=== PATIENT | female | born 1975 | race Caucasian/White ===

== ENCOUNTER 2018-02-14 05:05 | Outpatient (CLI) | payer MEDICARE, MEDICAID ==
[~2018-02-14 05:05] MED LIST: ALBU18HF2 INH; BECL7.3A INH; CHOL2000 PO; CLOT15CR73 TP; FERR325T28 PO; GLIP5TAB13 PO; LOSA1TAB36 PO; METF500T3 PO; METO25TA6 PO; OMEP40CA37 PO
== END 2018-02-14 23:59 | disposition home or self-care (01) ==
LOC: DIABETIC 05:05
PROVIDERS: ATTEND Student in an Organized Health Care Education/Training Program
DX: Z71.3 Dietary counseling and surveillance (principal); E11.9 Type 2 diabetes mellitus without complications; E66.01 Morbid (severe) obesity due to excess calories
CPT/HCPCS: 97802

== ENCOUNTER 2018-04-10 02:23 | Outpatient (CLI) | payer MEDICARE, MEDICAID | END 2018-04-10 23:59 | disposition home or self-care (01) | LOC: DIABETIC 02:23 | PROVIDERS: ATTEND Student in an Organized Health Care Education/Training Program | DX: Z01.818 Encounter for other preprocedural examination (principal); E11.9 Type 2 diabetes mellitus without complications; I10 Essential (primary) hypertension; E66.9 Obesity, unspecified; E66.01 Morbid (severe) obesity due to excess calories; J45.909 Unspecified asthma, uncomplicated; Z79.84 Long term (current) use of oral hypoglycemic drugs; Z79.899 Other long term (current) drug therapy | CPT/HCPCS: 97802 ==

== ENCOUNTER 2018-05-06 01:40 | Outpatient (CLI) | payer MEDICARE, MEDICAID | END 2018-05-06 23:59 | disposition home or self-care (01) | LOC: DIABETIC 01:40 | PROVIDERS: ATTEND Student in an Organized Health Care Education/Training Program | DX: E66.01 Morbid (severe) obesity due to excess calories (principal); E11.9 Type 2 diabetes mellitus without complications; I10 Essential (primary) hypertension; K75.81 Nonalcoholic steatohepatitis (NASH); J45.909 Unspecified asthma, uncomplicated; Z79.84 Long term (current) use of oral hypoglycemic drugs; Z79.899 Other long term (current) drug therapy | CPT/HCPCS: 97802 ==

== ENCOUNTER 2018-06-05 02:18 | Outpatient (CLI) | payer MEDICARE, MEDICAID | END 2018-06-05 23:59 | disposition home or self-care (01) | LOC: DIABETIC 02:18 | PROVIDERS: ATTEND Student in an Organized Health Care Education/Training Program | DX: Z01.818 Encounter for other preprocedural examination (principal); E66.01 Morbid (severe) obesity due to excess calories; E11.9 Type 2 diabetes mellitus without complications; K58.8 Other irritable bowel syndrome; I10 Essential (primary) hypertension; Z79.899 Other long term (current) drug therapy; Z79.84 Long term (current) use of oral hypoglycemic drugs | CPT/HCPCS: 97802 ==

== ENCOUNTER 2018-07-08 03:14 | Outpatient (CLI) | payer MEDICARE, MEDICAID | END 2018-07-08 23:59 | disposition home or self-care (01) | LOC: DIABETIC 03:14 | PROVIDERS: ATTEND Student in an Organized Health Care Education/Training Program | DX: Z01.818 Encounter for other preprocedural examination (principal); I10 Essential (primary) hypertension; E11.9 Type 2 diabetes mellitus without complications; E66.9 Obesity, unspecified; J45.909 Unspecified asthma, uncomplicated; Z98.890 Other specified postprocedural states; Z88.1 Allergy status to other antibiotic agents; Z88.8 Allergy status to other drugs, medicaments and biological substances; Z91.018 Allergy to other foods | CPT/HCPCS: G0108 ==

== ENCOUNTER 2021-07-24 16:51 | Emergency (ER) | payer MEDICARE, MEDICAID ==
[~2021-07-24] VITALS: Ht 162.6 cm; Wt 88.6 kg
[~2021-07-24 16:51] MED LIST changes: +LOP25T PO; -METO25TA6 PO; +OMEP40CA21 PO; -OMEP40CA37 PO
[2021-07-24 17:33] VITALS: BP 141/93
[2021-07-24] MEDS ORDERED: HYDR-3965 PO ×2 (21:19→21:51)
== END 2021-07-24 21:19 | disposition home or self-care (01) ==
LOC: ER 16:51
DX: M25.512 Pain in left shoulder (principal); G89.29 Other chronic pain; Z88.1 Allergy status to other antibiotic agents; Z88.8 Allergy status to other drugs, medicaments and biological substances; Z91.018 Allergy to other foods; Z79.899 Other long term (current) drug therapy
CPT/HCPCS: 73030; 99283

== ENCOUNTER 2023-06-13 18:07 | Emergency (ER) | payer MEDICARE, MEDICAID ==
[~2023-06-13] VITALS: Ht 162.6 cm; Wt 93.6 kg
[~2023-06-13 18:07] MED LIST changes: -GLIP5TAB13 PO; +GLIP5TAB23 PO
[2023-06-13] MEDS ORDERED: acetaminophen 325mg tablet PO ONE (18:20)
[2023-06-13 19:32] LABS: BASOPHILS % (AUTO) 0.5 % (0-1); EOSINOPHILS % (AUTO) 0.3 % (0-6); HEMOGLOBIN 12.6 g/dl (12.0-16.0); LYMPHOCYTES # (AUTO) 1.6 X10'3 (1.1-4.8); LYMPHOCYTES % (AUTO) 18.6 % (21-51); MEAN CORPUSCULAR HEMOGLOBIN 25.9 PG (27.0-31.0); MEAN CORPUSCULAR VOLUME 76.4 FL (78-98); MEAN PLATELET VOLUME 8.7 FL (7.4-10.4); MONOCYTES # (AUTO) 0.9 X10'3 (0-0.9); MONOCYTES % (AUTO) 10.4 % (2-12); NEUTROPHILS # (AUTO) 5.9 X10'3 (1.8-7.7); NEUTROPHILS % (AUTO) 70.2 % (42-75); PLATELET COUNT 133 X10'3 (140-440); RED BLOOD COUNT 4.84 X10'6 (4.20-5.60); RED CELL DISTRIBUTION WIDTH 14.3 % (11.5-14.5); WHITE BLOOD COUNT 8.5 X10'3 (4.5-11.0)
[2023-06-13 19:33] LABS: ALANINE AMINOTRANSFERASE 24 U/L (12-78); ALBUMIN 3.6 G/DL (3.4-5.0); ALBUMIN/GLOBULIN RATIO 0.8 (1.1-1.5); ALKALINE PHOSPHATASE 143 IU/L (46-116); ANION GAP 8 (8-16); ASPARTATE AMINO TRANSFERASE 20 U/L (10-37); BILIRUBIN,TOTAL 0.8 MG/DL (0.1-1.0); BLOOD UREA NITROGEN 7 MG/DL (7-18); BUN/CREATININE RATIO 7.7 (10.0-20.0); CHLORIDE 95 MMOL/L (99-107); CREATININE 0.91 MG/DL (0.40-0.90); GLUCOSE 162 MG/DL (70-104); POTASSIUM 3.4 MMOL/L (3.5-5.1); SODIUM 132 MMOL/L (135-145); TOTAL CARBON DIOXIDE 28.9 MMOL/L (24-32); TOTAL PROTEIN 8.4 G/DL (6.4-8.2); eCRCL 67 ML/MIN; eGFR 67 ML/MIN
[2023-06-14 01:14] LABS: BILIRUBIN,URINE MODERATE (Neg); CLARITY,URINE SLIGHTLY CLOUDY (Clear); COLOR,URINE AMBER (Yellow); GLUCOSE, URINE NEGATIVE (Neg); KETONES,URINE >=80 mg/dl (Neg); LEUKOCYTE ESTERASE ,URINE NEGATIVE (Neg); NITRITES, URINE NEGATIVE (Neg); OCCULT BLOOD,URINE TRACE-INTACT (Neg); PH,URINE 5.5 (4.8-8.0); PROTEIN,URINE 100 mg/dl (Neg)
[2023-06-14 01:19] LABS: UA COLLECTION TYPE CLN CATCH MIDSTREAM
[2023-06-14 01:21] LABS: MUCUS STRANDS MANY /LPF (Neg); SQUAMOUS EPITHELIAL CELL,UR MODERATE /LPF (FEW)
[2023-06-14 01:23] LABS: WBC,URINE 50-100 /HPF (0-4)
[2023-06-14 01:26] LABS: BACTERIA,URINE 3+ /HPF (Neg)
[2023-06-14 01:27] LABS: TRANSITIONAL EPI CELLS,URINE FEW /HPF; WBC CLUMPS,URINE FEW /HPF (NEGATIVE)
[2023-06-14] MEDS ORDERED: acetaminophen 1,000mg/100ml IV 100 ML IV STA (01:45)
[2023-06-14] MEDS ORDERED: normal saline 1000ml 1,000 ML IV ONE ×2 (01:45)
[2023-06-14] MEDS ORDERED: CefTRIAXone/D5W-Rocephin 1gm 50 ML IV STA (01:46)
[2023-06-14] MEDS ORDERED: CEPH-585 PO (02:20)
[2023-06-14 03:30] VITALS: BP 112/67; PULSE 77; RESP 20; TEMP 98.2; O2SAT 95
== END 2023-06-14 03:56 | disposition home or self-care (01) ==
LOC: ER 18:08
DX: N39.0 Urinary tract infection, site not specified (principal); R11.10 Vomiting, unspecified; R50.9 Fever, unspecified; J45.909 Unspecified asthma, uncomplicated; E11.9 Type 2 diabetes mellitus without complications; G89.29 Other chronic pain; Z91.048 Other nonmedicinal substance allergy status; Z88.8 Allergy status to other drugs, medicaments and biological substances; Z79.2 Long term (current) use of antibiotics; Z79.899 Other long term (current) drug therapy; Z88.1 Allergy status to other antibiotic agents
CPT/HCPCS: 36415; 71045; 80053; 81001; 83605; 84145; 85025; 87040; 87088; 96365; 96375; 99285; J0131; J0696; J7030

== ENCOUNTER 2023-07-25 12:43 | Emergency (ER) | payer MEDICARE, MEDICAID ==
[~2023-07-25] VITALS: Ht 154.9 cm; Wt 66.8 kg
[2023-07-25] MEDS: normal saline 1000ml 1,000 ML IV ONE (12:45)
[2023-07-25] MEDS: normal saline 1000ML IV soln IVB ONE (12:52)
[2023-07-25] MEDS: ipratropium 0.5 MG/2.5ML nebule IH ONE (13:00)
[2023-07-25] MEDS: methylPREDNISolone sod succ 125mg/2ml vial IV ONE (13:01)
[2023-07-25] MEDS: albuterol 2.5 MG/3 ML nebule CONTNEB PRN (13:01)
[2023-07-25] MEDS: LORazepam 2 mg/ml vial IV ONE (13:02)
[2023-07-25 13:04] VITALS: PULSE 122; RESP 22
[2023-07-25 13:31] LABS: BASOPHILS % (AUTO) 0.5 % (0-1); EOSINOPHILS # (AUTO) 0.8 X10'3 (0-0.9); EOSINOPHILS % (AUTO) 11.5 % (0-6); HEMATOCRIT 38.5 % (35.0-45.0); HEMOGLOBIN 12.8 g/dl (12.0-16.0); LYMPHOCYTES % (AUTO) 27.3 % (21-51); MEAN CORPUSCULAR HEMOGLOBIN 24.9 PG (27.0-31.0); MEAN CORPUSCULAR HGB CONC 33.3 g/dL (33.0-36.5); MEAN CORPUSCULAR VOLUME 74.7 FL (78-98); MEAN PLATELET VOLUME 9.1 FL (7.4-10.4); MONOCYTES # (AUTO) 0.4 X10'3 (0-0.9); MONOCYTES % (AUTO) 5.6 % (2-12); NEUTROPHILS % (AUTO) 55.1 % (42-75); PLATELET COUNT 151 X10'3 (140-440); RED BLOOD COUNT 5.15 X10'6 (4.20-5.60); RED CELL DISTRIBUTION WIDTH 14.2 % (11.5-14.5); WHITE BLOOD COUNT 7.2 X10'3 (4.5-11.0)
[2023-07-25 13:33] VITALS: PULSE 126; RESP 18; O2SAT 100
[2023-07-25 13:55] LABS: APTT 28 SECONDS (22-32); INR 1.1 INR; PROTHROMBIN TIME 11.3 SECONDS (9.0-12.0)
[2023-07-25 14:11] LABS: ALBUMIN 3.3 G/DL (3.4-5.0); ANION GAP 16 (8-16); BLOOD UREA NITROGEN 8 MG/DL (7-18); BUN/CREATININE RATIO 8.7 (10.0-20.0); CALCIUM 8.6 MG/DL (8.5-10.1); CHLORIDE 107 MMOL/L (99-107); CREATININE 0.92 MG/DL (0.40-0.90); GLUCOSE 199 MG/DL (70-104); POTASSIUM 3.1 MMOL/L (3.5-5.1); PRO BRAIN NATRIURETIC PEPTIDE 50 PG/ML (0-125); SODIUM 146 MMOL/L (135-145); TOTAL CARBON DIOXIDE 23.3 MMOL/L (24-32); eCRCL 58 ML/MIN; eGFR 66 ML/MIN
[2023-07-25] MEDS ORDERED: PRED20TA PO (14:17)
[2023-07-25] MEDS ORDERED: ALBU8HFA INH (14:17)
[2023-07-25] MEDS ORDERED: AMOX-580 PO (14:17)
[2023-07-25 14:21] VITALS: PULSE 122; RESP 14; O2SAT 100
[2023-07-25] MEDS: potassium Cl 20 mEq SR tablet PO STA (14:40)
[2023-07-25 15:24] VITALS: BP 135/79; PULSE 105; RESP 18; TEMP 98.3; O2SAT 98
== END 2023-07-25 15:24 | disposition home or self-care (01) ==
LOC: ER 12:43
DX: J45.901 Unspecified asthma with (acute) exacerbation (principal); E87.6 Hypokalemia; E11.9 Type 2 diabetes mellitus without complications; Z88.8 Allergy status to other drugs, medicaments and biological substances; Z88.5 Allergy status to narcotic agent; Z79.899 Other long term (current) drug therapy
CPT/HCPCS: 36415; 71045; 80048; 83880; 84484; 85025; 85610; 85730; 93005; 94640; 94644; 96361; 96374; 96375; 99285; J2060; J2930; J7030; 94760; A7015